=== PATIENT | male | born 1990 | race Caucasian/White ===

== ENCOUNTER 2017-01-28 15:03 | Emergency (ER) | payer SELFPAY ==
[~2017-01-28] VITALS: Ht 180.3 cm; Wt 72.6 kg
[~2017-01-28 15:03] MED LIST: AZITHROMYCIN250 MG PO; ERY-TAB 250MG250 MG OR; HYDROCODONE1 TABLET PO; LEVAQUIN 750 M750 MG PO; MEDROL 4MG. DOSE4 MG PO; PERCOCET1 TAB PO; VIBRAMYCIN 100100 MG PO; VOLTAREN75 MG PO; [UNRECOGNIZED DRUG - REMARK] PO
[2017-01-28] MEDS ORDERED: SUBOXONE 8 MG-21 FIL SL (15:23)
--- NOTE | 2017-01-28 15:53 | Emergency Room Report ---
History of Present Illness Time Seen by 1530 Presenting Problem in Triage Pt arrived:Walked Presenting Problem:PT REPORTS NECK PAIN, UPPER BACK PAIN BETWEEN SHOULDER BLADES , REPORTS HEADACHE LASTNIGHT. PT REPORTS HE FELL OFF OF THE EDGE OF HIS ROOF YESTERDAY, ESTIMATES FALL TO BE APPROX 20 FEET. PT DENIES LOC. PT DENIES ANY NUMBNESS, TINGLING, DECREASED SENSATION. Onset of symptoms date/time:01/27/17 or onset unknown for: Treatment Prior to Arrival: CALL CENTER AGENT Provided by: Sepsis Risk Assessment: Temp: 98.4 B/P: 138/73 MAP: 94 Pulse: 65 Resp: 18 Recent fever? N Clinical Suspician of Infection? N Mental Status: 1 - Regular (Normal Baseline) Sepsis Risk:Low Sepsis Risk Have you (or family members/close friends) recently traveled outside the [place]? N If Yes, where/when: Have you had exposure to infectious disease within the past month? N TB? Other? Specify: This 26 years old white male patient of the [facility] who was working on his house yesterday at 4 PM when he accidentally fell off the roof 20 feet high. He does not recall the exact amount that he got up and he felt pain on the RIGHT side of the neck. This morning he continues to have pain on the RIGHT side of the neck so he was brought by his to be checked. He denies having weakness or numbness of the lower extremities there is no loss of bowel control. The patient and his denies any intake of alcohol or drugs. Source patient, RN notes reviewed, family (the ) Exam Limitations no limitations ALLERGIES Coded Allergies: Penicillins (09/09/16) aspirin (09/09/16) codeine (NA-NAUSEA 01/28/17) Home Medications Reported Medications BUPRENORPHINE HCL/NALOXONE HCL (Suboxone 8 MG-2 MG Sl Film) 1 FILM SL DAILY History Medical History General CAD? No Angina: No GA: No Hypertension? No Hyperlipidemia? No CHF? No DVT? No PE? No COPD? No Asthma? No Anemia? No GERD? No Gastric ulcers? No GI Bleed? No Hernia? No Thyroid Problems? No Hypothyroidism? No CVA? No Seizures? No Diabetes? No Renal Insuffiency? No End Stage Renal Disease? No UTI? No Stones? No BPH? No GB Disease: No Nephritic Syndrome? No Asplenia? No Hepatitis? No Sickle Cell Disease? No Arthritis? No Migraines? No Cataracts? No Glaucoma? No MRSA? No HIV? No TB? No Anxiety? Yes Depression? No Cancer? No More? No Immunization Hx DT/Tetanus > 10 Years Ago Surgical Hx Previous Surgery?N Social History Smoking Hx Smoker: Current Every Day Smoker Tobacco: Yes Type Cigarettes Packs/day < 1 Pack Alcohol Alcohol: No Review of Systems All Other Systems Reviewed and Negative Constitutional no symptoms reported Eyes no symptoms reported ENT no symptoms reported. Respiratory no symptoms reported Cardiovascular no symptoms reported Gastrointestinal no symptoms reported Genitourinary no symptoms reported. Musculoskeletal see HPI, neck pain Skin no symptoms reported Psychiatric/Neurological no symptoms reported, see HPI, headache Physical Exam Vital Signs Vital Signs Date Time Temp Pulse Resp B/P Pulse O2 O2 Flow FiO2 Ox Delivery Rate 01/28 1631 64 18 135/77 100 01/28 1513 98.4 65 18 138/73 97 - WBC >12,000 or <4,000 or 10% bands? 2 or more SIRS Criteria Met? B/P:138/73 MAP:94 Creatinine >2.0? UA output<0.5ml/kg/hr for 2 hrs? Platelet count >100,000? Lactate >2.0mmol/1? INR >1.2 or PTT > than 60 sec? Evidence of Organ Dysfunction? Provider documented clinical suspician of infection? N Sepsis Criteria Count: 0 Sepsis Risk: Low Sepsis Risk General Appearance normal appearance, WD/WN Eye Exam - bilateral eye normal exam, bilateral eye PERRL, bilateral eye EOMI Ear, Nose, Throat hearing grossly normal, normal ENT inspection Neck normal inspection, RIGHT cervical paraspinal tenderness Respiratory Status Yes: trachea midline, chest symmetrical, non tender chest. No: respiratory distress. Lung Sounds bilateral: normal breath sounds, lungs clear. 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 No Results/Orders Orders Procedure Date/time Status DIET-NOTHING BY MOUTH 01/[address] HEAD REQ 01/[address] SCAN REQ 01/28 1525 Complete PELVIS AP ONLY 01/28 152 Active CHEST-AP VIEW ONLY 01/28 1525 Active Departure Departure Time of Disposition 1720 Disposition DC/XFER from ER to [facility] Clinical Impression Primary Impression: Pneumomediastinum Secondary Impressions: Left against medical advice Condition STABLE Referrals AMOS ZEPEDA Additional Instructions I discussed with the patient and his the findings on the CT scan. Explored the possibility of having also vesophageal or bronchial rupture. I called trauma service and he was accepted under Dr. Zepeda. The patient discussed with his that he has errands to do and he will decide about going to versus AGAINST MEDICAL ADVICE, patient is aware of the risks of mediastinitis sepsis and . The patient was given copies of his CT scan. Discharge Counseling Counseled pt/family regarding diagnosis, test results, follow up needs ED Critical Care Critical Care No If Critical Care minutes are documented, the time involved in the performance of seperately reportable procedures was not counted toward critical care time documented. I directly delivered medical care to this critically ill and/or injured patient. Timely evaluation and treatment was necessary to address the significant organ system(s) dysfunction present in this patient. at 2812
--- NOTE | 2017-01-28 16:43 | RADIOLOGY REPORT PS360 ---
CT THORACIC SPINE W/O CONTRAST HISTORY: FALL..HEADACHE LAST NIGHT25 feet from roof. Pain. Headache. Patient Age: 26 years: Male Ordering Physician: Bill George MD TECHNIQUE: Helical CT scanning performed through the thoracic spine with sagittal and coronal reconstructions on CT workstation. COMPARISON : FINDINGS No fracture nor subluxation of thoracic spine.q No compression fractures. The disc spaces are well-maintained No paraspinal mass. The posterior ribs adjacent to the spine appear intact. The limited views of the lungs show no pneumothorax bleb formation developing at the apices the lungs with developing emphysematous changes noted at lung byrd. Moderate size Schmorl's node inferior endplate T9- & T10 incidentally noted IMPRESSION: Thoracic spine intact with no fracture.. . Addendum. Tiny amount of air is seen just to the right of the esophagus at the uppermost chest.. Barely evident May reflect some mild manifestation of barotrauma. I doubt is of significance likely self-limiting but if there should be any progressive mediastinal pain or discomfort, this would warrant follow-up Again no pneumothorax is evident
--- NOTE | 2017-01-28 16:45 | RADIOLOGY REPORT PS360 ---
CT HEAD WITHOUT CONTRAST CT BONE WINDOWS included ORDERING PHYSICIAN : Bill George MD PATIENT AGE: 26 years GENDER: Male PROCEDURE: Routine axial images headwithout contrast. Brain & bone windows HISTORY: FALL..HEADACHE LAST NIGHT. Headache 25 foot fall COMPARISON: No relevant studies FINDINGS: The No acute intracranial findings. No hemorrhage. No mass effect or mass lesion. No subdural nor extra-axial collection. Ventricles & basal cisterns appear satisfactory. Villegas & white matter patterns satisfactory. The posterior fossa appear satisfactory and unremarkable. The skull is intact. visualized portions of the paranasal sinuses are clear. Mastoid air cells, middle ear & IACs are unremarkable.. Moderate Cerumen at the right external canal Report IMPRESSION: No acute intracranial findings. Brain intact with normal limits
--- NOTE | 2017-01-28 16:56 | RADIOLOGY REPORT PS360 ---
CT CERVICAL SPINE W/O CONT HISTORY: FALL..HEADACHE LAST NIGHT Patient Age: 26 years: Male Ordering Physician: Bill George MD TECHNIQUE: Helical CT scanning performed through the cervical spine with sagittal and coronal reconstructions on CT workstation. COMPARISON :No previous studies FINDINGS The cervical spine is intact with no fracture nor subluxation evident. There vertebral bodies are intact and disc spaces are well-maintained . Facets satisfactory with the neural foramen patent.. Only question some minor disc bulge at C6-7 posteriorly. Negligible C1-C2 relationship satisfactory. Incidental cervical ribs bilaterally measuring with the right slightly longer than left measuring over 2.2 cm right.. Emphysematous changes are noted at the lungs with early bleb lung apices even in this 26-year-old. Presumed smoker... Soft tissue density likely from Lymphoid hypertrophy along base the tongue on right more so than left. Appears reflect Prominent lingual tonsil . Warrants clinical correlation. Prominent palatine tonsils bilaterally. Scattered nodes throughout the neck.- Likely reactive nodes. IMPRESSION: 1. Cervical spine, no acute fracture nor subluxation cervical spine. 2. Tiny amount of mediastinal air to the right of the esophagus at upper chest (axial slice 79, 80.) Likely reflecting minor barotrauma changes, but with no pneumothorax evident 3. Extensive dental caries incidentally noted. . 4. Lymphoid hypertrophy Most likely prominent lymphoid hypertrophy/l with prominent lingual tonsil at base of tongue right greater than left, & extending towards vallecula.. Also Prominent palatine tonsils bilateral. 5. Small cervical ribs bilaterally, right slightly more evident than left
[2017-01-28 17:41] VITALS: BP 135/77
--- NOTE | 2017-01-29 04:56 | RADIOLOGY REPORT PS360 ---
CHEST-AP VIEW ONLY HISTORY: Chest pain following injury FALL ORDERING PHYSICIAN: Bill George MD PATIENT AGE: 26 years COMPARISON: 02/02/2014 FINDINGS: The cardiomediastinal silhouette and pulmonary vascularity are within normal limits. The lungs are clear without infiltrates, suspicious nodules, or pleural effusions. No acute bony abnormalities. IMPRESSION: Negative chest, no acute finding
--- NOTE | 2017-01-29 04:57 | RADIOLOGY REPORT PS360 ---
PELVIS AP ONLY HISTORY: Fall with injury and pain FALL ORDERING PHYSICIAN: Bill George MD PATIENT AGE: 26 years COMPARISON: None FINDINGS: No fracture or dislocation is evident. No significant degenerative change. No lytic or blastic change. The SI joints have an unremarkable appearance. Unremarkable soft tissues. IMPRESSION: Negative pelvis.
== END 2017-01-28 17:41 | disposition short-term general hospital (02) ==
LOC: ER 15:03
DX: T79.7XXA Traumatic subcutaneous emphysema, initial encounter (principal); W13.2XXA Fall from, out of or through roof, initial encounter; Z88.0 Allergy status to penicillin; Z88.6 Allergy status to analgesic agent; Z79.82 Long term (current) use of aspirin; F41.9 Anxiety disorder, unspecified; F17.210 Nicotine dependence, cigarettes, uncomplicated